=== PATIENT | female | born 1940 | race African-American/Black ===

== ENCOUNTER 2018-05-24 05:18 | Inpatient (IN) | payer BC, MEDICARE ==
[2018-05-24] VITALS (12 sets, daily range): BP systolic 103–151; BP diastolic 64–92
[~2018-05-24] VITALS: Ht 171.4 cm; Wt 68.5 kg
[~2018-05-24 05:18] MED LIST: AMITRIPTYLINE100 MG ORAL; ATORVASTATIN CA20 MG ORAL
[2018-05-24] MEDS ORDERED: celeBREX 200mg Cap **SURGERY PATIENTS ONLY ORAL ONE (06:00)
[2018-05-24] MEDS ORDERED: ceFAZolin 1gm in D5W 55ml IVP ONE (06:00)
[2018-05-24] MEDS ORDERED: oxyCONTIN 20mg tab ORAL ONE (06:00)
--- NOTE | 2018-05-24 06:54 | Pre-Procedure Note/Attestation ---
Pre-Procedure Note/Attestation Complete Prior to Procedure Planned Procedure: left Procedure Narrative: left tka Indications for Procedure Pre-Operative Diagnosis: left knee arthritis Attestation I attest that I discussed the nature of the procedure; its benefits; risks and complications; and alternatives (and the risks and benefits of such alternatives ), prior to the procedure, with the patient (or the patient's legal customer service representative teller). I attest that, if there was a reasonable possibility of needing a blood transfusion, the patient (or the patient's legal customer service representative teller) was given the [facility] standardized written summary, pursuant to the Jim Leena Blood Safety Act ([place] Health and Safety Code # 1645, as amended). I attest that I re-evaluated the patient just prior to the surgery and that there has been no change in the patient's H&P, except as documented below: none Bruno Richardson MD May 24, 2018 06:54
[2018-05-24] MEDS ORDERED: LR 1000ml ONE (07:00)
[2018-05-24] MEDS ORDERED: Propofol 200mg/20ml IV ONE (07:00)
[2018-05-24] MEDS ORDERED: NS Irrig 1000ml ONE (07:00)
[2018-05-24] MEDS ORDERED: Sterile Water Irrig 1000ml IRRIG ONE (07:00)
[2018-05-24] MEDS ORDERED: cloNIDine 1000mcg/10ml inj ONE (07:04)
[2018-05-24] MEDS ORDERED: Bupivacaine 0.5% Inj 30 ml vial INJ ONE (07:04)
[2018-05-24] MEDS ORDERED: Bacitracin 50000 Units Vial ONE ×2 (07:05→09:44)
[2018-05-24] MEDS ORDERED: NeoSporin Gu Irrig 1ml Amp IRRIG ONE ×2 (07:05→09:44)
[2018-05-24] MEDS ORDERED: Ropivacaine 5mg/ml Vial 30ml INJ ONE (07:08)
[2018-05-24] MEDS ORDERED: Dexamethasone 4mg/ml vial ONE (07:08)
[2018-05-24] MEDS ORDERED: Lidocaine 1% MPF 10mg/ml 5ml ONE (07:08)
[2018-05-24] MEDS ORDERED: Sodium Chloride 10ml vial INJ ONE (07:08)
[2018-05-24] MEDS ORDERED: EPINEPHrine 1mg/1ml Amp ONE (07:09)
[2018-05-24] MEDS ORDERED: D5 1/2NS w/KCl 20mEq 1,000 ML IV SCH (07:13)
[2018-05-24] MEDS ORDERED: HYDROcodone/Acetamin 7.5/325 tab ORAL PRN ×2 (07:15→07:45)
[2018-05-24] MEDS ORDERED: Milk of Magnesia 30ml Ud ORAL PRN (07:15)
[2018-05-24] MEDS ORDERED: Morphine Sulfate 2mg/ml Inj IVP PRN (07:30)
[2018-05-24] MEDS ORDERED: LR 1000ml 1,000 ML IVLG SCH (07:35)
--- NOTE | 2018-05-24 07:35 | Anethesia Preoperative Eval ---
Anesthesia Pre-op PMH/ROS General Date of Evaluation: May 24, 2018 Time of Evaluation: 07:01 Anesthesiologist: Car ASA Score: ASA 3 Mallampati Score Class I : Soft palate, uvula, fauces, pillars visible Class II: Soft palate, uvula, fauces visible Class III: Soft palate, base of uvula visible Class IV: Only hard plate visible Mallampati Classification: Class II Surgeon: Debra Diagnosis: L Knee Pain Surgical Procedure: L TKR Anesthesia History: none Family History: no anesthesia problems Allergies: Coded Allergies: No Known Allergies (Unverified , 05/20/18) Medications: see eMAR Past Medical History Cardiovascular: Reports: HTN, other - HL Gastrointestinal/Genitourinary: Reports: GERD, other - Hep C Anesthesia Pre-op Phys. Exam Physician Exam Last Vital Signs Date Time Temp Pulse Resp B/P (MAP) Pulse Ox O2 Delivery O2 Flow Rate FiO2 05/24/18 06:08 97.6 87 20 151/92 (111) 97 97.6 05/24/18 05:51 Room Air Constitutional: NAD Neurologic: CN 2-12 intact Cardiovascular: RRR Respiratory: CTA Gastrointestinal: S/NT/ND Airway Exam Mallampati Score: Class II MO: full ROM: full Teeth: missing, intact Anesthesia Pre-op A/P Risk Assessment & Plan Assessment: ASA 3 Plan: GA, BIS, Spinal, L Adductor Block Status Change Before Surgery: No Pre-Antibiotics Dru Grams Ancef IV Given Within 1 Hr of Incision: Yes Time Given: 07:33 Ruddy Yoon MD May 24, 2018 07:35
[2018-05-24] MEDS ORDERED: DiphenhydrAMINE 50mg/ml Inj IVP PRN (07:45)
[2018-05-24] MEDS ORDERED: Labetalol 5mg/ml 20ml vial IV PRN (07:45)
[2018-05-24] MEDS ORDERED: LORazepam Inj 2mg/ml 1ml IV PRN (07:45)
[2018-05-24] MEDS ORDERED: Midazolam 2mg/2ml Inj IVP PRN (07:45)
[2018-05-24] MEDS ORDERED: oxyCODONE HCL/Acetaminophen 5/325mg ORAL PRN (07:45)
[2018-05-24] MEDS ORDERED: Atropine Inj 1mg/10ml Syr IV PRN (07:45)
[2018-05-24] MEDS ORDERED: Norco 5mg/325mg tab ORAL PRN (07:45)
[2018-05-24] MEDS ORDERED: Metoclopramide 10mg/2ml Inj IVP PRN (07:45)
[2018-05-24] MEDS ORDERED: fentaNYL 100 mcg/2 mL IV PRN (07:45)
[2018-05-24] MEDS ORDERED: Hydromorphone 0.5mg/0.5ml inj IVP PRN (07:45)
[2018-05-24] MEDS ORDERED: Tranexamic Acid 1,000 MG in NS 65 ML IVPB ONE (08:00)
--- NOTE | 2018-05-24 08:29 | Immediate Post-Op Evaluation ---
Immediate Post-Op Evalulation Immediate Post-Op Evalulation Procedure: L TKR Date of Evaluation: May 24, 2018 Time of Evaluation: 10:40 IV Fluids: 1200 LR Blood Products: 0 Estimated Blood Loss: 25 Urinary Output: 0 Blood Pressure Systolic: 115 Blood Pressure Diastolic: 66 Pulse Rate: 99 Respiratory Rate: 16 O2 Sat by Pulse Oximetry: 99 Temperature (Fahrenheit): 97.6 Pain Score (1-10): 0 Nausea: No Vomiting: No Complications 0 Patient Status: awake, reacts, patent, none Hydration Status: adequate Dru Grams Ancef IV Given Within 1 Hr of Incision: Yes Time Given: 08:33 Ruddy Yoon MD May 24, 2018 08:29
[2018-05-24] MEDS ORDERED: ePHEDrine 50mg/ml Inj ONE (08:56)
[2018-05-24] MEDS ORDERED: Docusate 100mg cap ORAL SCH (09:00)
[2018-05-24] MEDS ORDERED: Acetaminophen 500mg (ES) tab ORAL SCH (09:00)
[2018-05-24] MEDS ORDERED: Enoxaparin 30mg Inj SUBQ SCH (09:00)
[2018-05-24] MEDS ORDERED: celeBREX 200mg Cap **SURGERY PATIENTS ONLY ORAL SCH (09:00)
--- NOTE | 2018-05-24 11:24 | Diagnostic Imaging Report ---
Indication: Knee pain status post total knee replacement Technique: XRAY Knee 1-2v L Comparison: None Findings: Expected appearance status post recent total knee arthroplasty with patellar resurfacing. Anatomic alignment within normal limits. No hardware-related complication. No evidence of acute fracture. Expected gas in the joint and subcutaneous tissues. No radiopaque foreign body identified. Impression: Expected appearance status post recent total knee replacement. No evidence of acute fracture or definite hardware-related complication.
--- NOTE | 2018-05-24 11:44 | Brief Operative Note ---
Immediate Post Operative Note Operative Note Chief Complaint: left knee pain Pre-op Diagnosis: left knee arthritis Procedure: left tka Post-op Diagnosis: same as pre-op Findings: consistent w/pre-op dx studies Surgeon: md dewey Sample Room Supervisor: marciano gordon Anesthesiologist: md ruthie Anesthesia: general, regional Specimen: yes Complications: none Condition: stable Fluids: ns Estimated Blood Loss: minimal Drains: none Implant(s) used?: Yes - wright and nephew Crissy Gordon May 24, 2018 11:44
[2018-05-24] MEDS: D5 1/2NS w/KCl 20mEq 1,000 ML IV SCH (14:43)
[2018-05-24] MEDS ORDERED: oxyCONTIN 20mg tab ORAL SCH (15:00)
[2018-05-24] MEDS: ceFAZolin sod 1 GM in D5W 55 ML IV SCH (17:39)
[2018-05-24] MEDS: Docusate 100mg cap ORAL SCH (17:45)
[2018-05-24] MEDS: Acetaminophen 500mg (ES) tab ORAL SCH (17:46)
[2018-05-24] MEDS: oxyCONTIN 20mg tab ORAL SCH (20:50)
[2018-05-24] MEDS: Enoxaparin 30mg Inj SUBQ SCH (20:55)
[2018-05-24] MEDS: Norco 5mg/325mg tab ORAL PRN (22:57)
[2018-05-25] MEDS: ceFAZolin sod 1 GM in D5W 55 ML IV SCH (00:12)
[2018-05-25 00:50] VITALS: BP_SYST 131; BP_DIAS 18; BP_DIAS 78
[2018-05-25] MEDS: D5 1/2NS w/KCl 20mEq 1,000 ML IV SCH ×2 (03:40→17:33)
[2018-05-25 04:00] VITALS: BP 124/57
[2018-05-25] MEDS: Norco 5mg/325mg tab ORAL PRN (05:37)
[2018-05-25 06:45] LABS: BASOPHILS % (AUTO) 0.2 % (0.0-2.0); HEMATOCRIT 34.1 % (37.0-47.0); HEMOGLOBIN 11.4 G/DL (12.0-16.0); LYMPHOCYTES % (AUTO) 12.6 % (20.0-45.0); MEAN CORPUSCULAR VOLUME 88 FL (80-99); MONOCYTES % (AUTO) 7.3 % (1.0-10.0); NEUTROPHILS % (AUTO) 79.9 % (45.0-75.0); PLATELET COUNT 164 K/UL (150-450); RED BLOOD COUNT 3.87 M/UL (4.20-5.40); RED CELL DISTRIBUTION WIDTH 11.7 % (11.6-14.8); WHITE BLOOD COUNT 13.3 K/UL (4.8-10.8)
[2018-05-25] MEDS ORDERED: Alfentanil 2ml Inj ONE (07:00)
[2018-05-25] MEDS: Morphine Sulfate 2mg/ml Inj IVP PRN ×2 (07:17→22:53)
--- NOTE | 2018-05-25 07:32 | 48 Hour Post Anesthesia Eval ---
Post Anesthesia Evaluation Procedure: L TKR Date of Evaluation: May 25, 2018 Time of Evaluation: 07:00 Blood Pressure Systolic: 124 0: 57 Pulse Rate: 81 Respiratory Rate: 17 Temperature (Fahrenheit): 98.2 O2 Sat by Pulse Oximetry: 100 Airway: patent Nausea: No Vomiting: No Pain Intensity: 0 Hydration Status: adequate Cardiopulmonary Status: at baseline Mental Status/LOC: patient returned to baseline Post-Anesthesia Complications: 0 Follow-up care needed: N/A - further care aas per primary team VIDYA JOE M.D. May 25, 2018 07:32
[2018-05-25 08:00] VITALS: BP 109/74
--- NOTE | 2018-05-25 08:26 | Orthopedic Progress Note ---
Orthopedic - Progress Note Subjective Symptoms: c/o post-op knee pain Objective Vital Signs Laboratory Tests Test 05/25/18 05:20 White Blood Count 13.3 K/UL (4.8-10.8) H Red Blood Count 3.87 M/UL (4.20-5.40) L Hemoglobin 11.4 G/DL (12.0-16.0) L Hematocrit 34.1 % (37.0-47.0) L Mean Corpuscular Volume 88 FL (80-99) Mean Corpuscular Hemoglobin 29.3 PG (27.0-31.0) Mean Corpuscular Hemoglobin Concent 33.3 G/DL (32.0-36.0) Red Cell Distribution Width 11.7 % (11.6-14.8) Platelet Count 164 K/UL (150-450) Mean Platelet Volume 6.7 FL (6.5-10.1) Neutrophils (%) (Auto) 79.9 % (45.0-75.0) H Lymphocytes (%) (Auto) 12.6 % (20.0-45.0) L Monocytes (%) (Auto) 7.3 % (1.0-10.0) Eosinophils (%) (Auto) 0.0 % (0.0-3.0) Basophils (%) (Auto) 0.2 % (0.0-2.0) Last 24 Hour Vital Signs Date Time Temp Pulse Resp B/P (MAP) Pulse Ox O2 Delivery O2 Flow Rate FiO2 05/25/18 07:47 98.2 05/25/18 07:32 208.8 81 17 100 05/25/18 07:17 98.2 05/25/18 06:36 98.2 05/25/18 05:37 98.2 05/25/18 04:00 98.2 81 17 124/57 (79) 100 98.2 05/25/18 00:50 97.8 98 18 131/18 (55) 99 97.8 05/25/18 00:50 97.8 98 18 131/78 (95) 99 97.8 05/24/18 22:57 97.6 05/24/18 21:00 Room Air 2.0 05/24/18 20:50 97.6 05/24/18 20:34 97.6 100 16 127/85 (99) 99 97.6 05/24/18 17:46 97.7 05/24/18 16:00 97.7 99 20 110/76 (87) 94 97.7 05/24/18 12:50 97.6 100 21 110/75 (87) 97 97.6 05/24/18 12:00 Nasal Cannula 2.0 05/24/18 11:40 98.6 93 14 106/68 98 Nasal Cannula 3 98.6 05/24/18 11:25 94 19 106/64 98 Nasal Cannula 3 05/24/18 11:05 98 19 105/71 96 Nasal Cannula 3 05/24/18 10:55 99 17 103/67 96 Nasal Cannula 3 05/24/18 10:45 100 14 107/65 99 Nasal Cannula 3 05/24/18 10:39 98 18 110/65 99 Simple Mask 6 05/24/18 10:34 97 15 112/70 99 Simple Mask 6 05/24/18 10:30 207.7 99 16 99 05/24/18 10:29 97.6 99 16 115/66 99 Simple Mask 6 97.6 I&O Intake and Output 05/24/18 05/25/18 19:00 07:00 Intake Total 2220 ml 1765 ml Output Total 725 ml 650 ml Balance 1495 ml 1115 ml Intake Oral 590 ml 980 ml IV Total 1630 ml 785 ml Output Urine Total 700 ml 650 ml Estimated Blood Loss 25 ml # Voids 2 Wound: clean, dry, intact Drains: none Neuro Status: normal Vascular Status: normal Additional Comments XRAY REVIEWED Assessment Post-op Diagnosis POD 1 Procedure Performed left tka Plan Plan: PT, pain management, discharge plan - home with services vs snf Crissy Ureña May 25, 2018 08:26
[2018-05-25] MEDS: oxyCONTIN 20mg tab ORAL SCH ×2 (09:00→20:57)
[2018-05-25] MEDS: Docusate 100mg cap ORAL SCH ×3 (10:09→17:33)
[2018-05-25] MEDS: Acetaminophen 500mg (ES) tab ORAL SCH ×3 (10:09→18:00)
[2018-05-25] MEDS: celeBREX 200mg Cap **SURGERY PATIENTS ONLY ORAL SCH (10:09)
[2018-05-25] MEDS: Enoxaparin 30mg Inj SUBQ SCH ×2 (10:14→20:58)
[2018-05-25 11:47] VITALS: BP 115/76
[2018-05-25 16:00] VITALS: BP 104/72
[2018-05-25 20:00] VITALS: BP 120/80
--- NOTE | 2018-05-25 20:11 | General Progress Note ---
Assessment/Plan Status Narrative s/p TOTAL KNEE REPLACEMENT perioperative antibitoi cprphyalxios post op dvt prophyalxis follwo cbc PT OT DVT prophylaxis ? [facility]. Subjective Date patient seen: May 25, 2018 Time patient seen: 20:08 Constitutional: Reports: no symptoms HEENT: Reports: no symptoms Cardiovascular: Reports: no symptoms Gastrointestinal/Abdominal: Reports: no symptoms Allergies: Coded Allergies: No Known Allergies (Unverified , 05/20/18) Subjective has knee pain PMH: hyperlipid allergy NKDA medicaiotn on statin at home ROS had knee pain prior to admit no feverno chills no ches tpain nio diplopia Objective Last 24 Hour Vital Signs Date Time Temp Pulse Resp B/P (MAP) Pulse Ox O2 Delivery O2 Flow Rate FiO2 05/25/18 16:00 97.6 74 20 104/72 (83) 95 97.6 05/25/18 15:08 97.8 05/25/18 14:09 97.8 05/25/18 11:47 97.8 97 20 115/76 (89) 94 97.8 05/25/18 10:09 97.8 05/25/18 09:00 97.8 05/25/18 08:39 Room Air 05/25/18 08:00 97.8 95 20 109/74 (86) 94 97.8 05/25/18 07:47 98.2 05/25/18 07:32 208.8 81 17 100 05/25/18 07:17 98.2 05/25/18 06:36 98.2 05/25/18 05:37 98.2 05/25/18 04:00 98.2 81 17 124/57 (79) 100 98.2 05/25/18 00:50 97.8 98 18 131/18 (55) 99 97.8 05/25/18 00:50 97.8 98 18 131/78 (95) 99 97.8 05/24/18 22:57 97.6 05/24/18 21:00 Room Air 2.0 05/24/18 20:50 97.6 05/24/18 20:34 97.6 100 16 127/85 (99) 99 97.6 Intake and Output 05/24/18 05/25/18 19:00 07:00 Intake Total 2220 ml 1765 ml Output Total 725 ml 650 ml Balance 1495 ml 1115 ml Intake Oral 590 ml 980 ml IV Total 1630 ml 785 ml Output Urine Total 700 ml 650 ml Estimated Blood Loss 25 ml # Voids 2 Laboratory Tests 05/25/18 05:20: White Blood Count 13.3H, Red Blood Count 3.87L, Hemoglobin 11.4L, Hematocrit 34.1L, Mean Corpuscular Volume 88, Mean Corpuscular Hemoglobin 29.3, Mean Corpuscular Hemoglobin Concent 33.3, Red Cell Distribution Width 11.7, Platelet Count 164, Mean Platelet Volume 6.7, Neutrophils (%) (Auto) 79.9H, Lymphocytes ( %) (Auto) 12.6L, Monocytes (%) (Auto) 7.3, Eosinophils (%) (Auto) 0.0, Basophils (%) (Auto) 0.2 Height (Feet): 5 Height (Inches): 7.50 Weight (Pounds): 151 General Appearance: WD/WN Neck: normal alignment Cardiovascular: normal rate, regular rhythm, no JVD Respiratory/Chest: lungs clear Abdomen: soft Extremities: other - no clubbing cyanosis and or edema Brody Ellis MD May 25, 2018 20:11
[2018-05-25] MEDS: Atorvastatin 20mg tab ORAL SCH (20:57)
[2018-05-26] VITALS: BP 124/78
[2018-05-26 04:00] VITALS: BP 119/77
[2018-05-26] MEDS: D5 1/2NS w/KCl 20mEq 1,000 ML IV SCH ×2 (05:57→20:23)
[2018-05-26 07:26] LABS: BASOPHILS % (AUTO) 0.8 % (0.0-2.0); EOSINOPHILS % (AUTO) 0.1 % (0.0-3.0); HEMOGLOBIN 10.8 G/DL (12.0-16.0); LYMPHOCYTES % (AUTO) 27.2 % (20.0-45.0); MEAN CORPUSCULAR VOLUME 89 FL (80-99); MONOCYTES % (AUTO) 7.5 % (1.0-10.0); NEUTROPHILS % (AUTO) 64.4 % (45.0-75.0); PLATELET COUNT 141 K/UL (150-450); RED BLOOD COUNT 3.57 M/UL (4.20-5.40); RED CELL DISTRIBUTION WIDTH 11.6 % (11.6-14.8)
--- NOTE | 2018-05-26 07:39 | Orthopedic Progress Note ---
Orthopedic - Progress Note Subjective Symptoms: c/o post-op knee pain Objective Vital Signs Last 24 Hour Vital Signs Date Time Temp Pulse Resp B/P (MAP) Pulse Ox O2 Delivery O2 Flow Rate FiO2 05/26/18 04:00 98.6 97 18 119/77 (91) 97 98.6 05/26/18 00:00 98.2 99 17 124/78 (93) 91 98.2 05/25/18 21:00 Room Air 05/25/18 20:00 97.3 82 18 120/80 (93) 92 97.3 05/25/18 16:00 97.6 74 20 104/72 (83) 95 97.6 05/25/18 15:08 97.8 05/25/18 14:09 97.8 05/25/18 11:47 97.8 97 20 115/76 (89) 94 97.8 05/25/18 10:09 97.8 05/25/18 09:00 97.8 05/25/18 08:39 Room Air 05/25/18 08:00 97.8 95 20 109/74 (86) 94 97.8 05/25/18 07:47 98.2 I&O Intake and Output 05/25/18 05/26/18 19:00 07:00 Intake Total 1102.5 ml 1625 ml Output Total 1800 ml 1525 ml Balance -697.5 ml 100 ml Intake Oral 540 ml 800 ml IV Total 562.5 ml 825 ml Output Urine Total 1800 ml 1525 ml Wound: clean, dry, intact Drains: none Neuro Status: normal Assessment Post-op Diagnosis POD #2 s/p Left TKA Doing Great Plan Plan: PT, pain management, discharge plan Additional Comments Dressing Change Arrange for Rehab placement tomorrow. Continue ambulation and DVT prophylaxis Bruno Richardson MD May 26, 2018 07:39
[2018-05-26 08:00] VITALS: BP 120/77
[2018-05-26] MEDS: Acetaminophen 500mg (ES) tab ORAL SCH ×3 (08:42→17:28)
[2018-05-26] MEDS: celeBREX 200mg Cap **SURGERY PATIENTS ONLY ORAL SCH (08:42)
[2018-05-26] MEDS: Docusate 100mg cap ORAL SCH ×3 (08:42→17:28)
[2018-05-26] MEDS: Enoxaparin 30mg Inj SUBQ SCH ×2 (09:00→20:24)
[2018-05-26] MEDS: oxyCONTIN 20mg tab ORAL SCH ×2 (09:00→20:24)
[2018-05-26 12:00] VITALS: BP 134/79
--- NOTE | 2018-05-26 13:52 | General Progress Note ---
Assessment/Plan Status Narrative s/p total knee arthroplasty pereioperative bloodloss Assessment/Plan pt ot dvt prophyalxis pain contorl needs to go to rehab [facility] and or other. Subjective Date patient seen: May 26, 2018 Time patient seen: 13:51 Constitutional: Reports: no symptoms HEENT: Reports: no symptoms Cardiovascular: Reports: no symptoms Respiratory: Reports: no symptoms Allergies: Coded Allergies: No Known Allergies (Unverified , 05/20/18) Subjective has knee pain PMH: hyperlipid allergy NKDA medicaiotn on statin at home ROS had knee pain prior to admit no feverno chills no ches tpain nio diplopia Objective Last 24 Hour Vital Signs Date Time Temp Pulse Resp B/P (MAP) Pulse Ox O2 Delivery O2 Flow Rate FiO2 05/26/18 13:18 98.6 05/26/18 12:00 98.4 101 18 134/79 (97) 95 98.4 05/26/18 09:41 98.6 05/26/18 09:00 Room Air 05/26/18 09:00 98.6 05/26/18 08:42 98.6 05/26/18 08:00 98.5 95 18 120/77 (91) 95 98.5 05/26/18 04:00 98.6 97 18 119/77 (91) 97 98.6 05/26/18 00:00 98.2 99 17 124/78 (93) 91 98.2 05/25/18 21:00 Room Air 05/25/18 20:00 97.3 82 18 120/80 (93) 92 97.3 05/25/18 16:00 97.6 74 20 104/72 (83) 95 97.6 05/25/18 14:09 97.8 Intake and Output 05/25/18 05/26/18 19:00 07:00 Intake Total 1102.5 ml 1625 ml Output Total 1800 ml 1525 ml Balance -697.5 ml 100 ml Intake Oral 540 ml 800 ml IV Total 562.5 ml 825 ml Output Urine Total 1800 ml 1525 ml Laboratory Tests 05/26/18 05:00: White Blood Count 10.0, Red Blood Count 3.57L, Hemoglobin 10.8L, Hematocrit 32.0L, Mean Corpuscular Volume 89, Mean Corpuscular Hemoglobin 30.2, Mean Corpuscular Hemoglobin Concent 33.8, Red Cell Distribution Width 11.6, Platelet Count 141L, Mean Platelet Volume 6.3L, Neutrophils (%) (Auto) 64.4, Lymphocytes (%) (Auto) 27.2, Monocytes (%) (Auto) 7.5, Eosinophils (%) (Auto) 0.1, Basophils (%) (Auto) 0.8 Height (Feet): 5 Height (Inches): 7.50 Weight (Pounds): 151 General Appearance: WD/WN Neck: normal alignment Cardiovascular: normal rate, regular rhythm, no JVD Respiratory/Chest: lungs clear Abdomen: soft Brody Ellis MD May 26, 2018 13:52
[2018-05-26 16:00] VITALS: BP 145/77
[2018-05-26 20:00] VITALS: BP 129/79
[2018-05-26] MEDS: Atorvastatin 20mg tab ORAL SCH (20:24)
[2018-05-27] VITALS: BP 107/72
[2018-05-27 04:00] VITALS: BP 117/76
[2018-05-27 07:04] LABS: BASOPHILS % (AUTO) 1.1 % (0.0-2.0); EOSINOPHILS % (AUTO) 1.7 % (0.0-3.0); HEMATOCRIT 31.1 % (37.0-47.0); HEMOGLOBIN 10.4 G/DL (12.0-16.0); LYMPHOCYTES % (AUTO) 33.4 % (20.0-45.0); MEAN CORPUSCULAR VOLUME 89 FL (80-99); MONOCYTES % (AUTO) 8.3 % (1.0-10.0); NEUTROPHILS % (AUTO) 55.5 % (45.0-75.0); PLATELET COUNT 155 K/UL (150-450); RED BLOOD COUNT 3.48 M/UL (4.20-5.40); RED CELL DISTRIBUTION WIDTH 11.6 % (11.6-14.8); WHITE BLOOD COUNT 9.8 K/UL (4.8-10.8)
[2018-05-27 08:00] VITALS: BP 125/78
[2018-05-27] MEDS: Docusate 100mg cap ORAL SCH ×2 (08:33→14:07)
[2018-05-27] MEDS: celeBREX 200mg Cap **SURGERY PATIENTS ONLY ORAL SCH (08:33)
[2018-05-27] MEDS: Acetaminophen 500mg (ES) tab ORAL SCH ×2 (08:34→14:08)
[2018-05-27] MEDS: Enoxaparin 30mg Inj SUBQ SCH (08:36)
[2018-05-27] MEDS: oxyCONTIN 20mg tab ORAL SCH (08:38)
[2018-05-27] MEDS: D5 1/2NS w/KCl 20mEq 1,000 ML IV SCH (08:40)
--- NOTE | 2018-05-27 09:19 | Orthopedic Progress Note ---
Orthopedic - Progress Note Subjective Symptoms: improved Objective Vital Signs Laboratory Tests Test 05/27/18 04:50 White Blood Count 9.8 K/UL (4.8-10.8) Red Blood Count 3.48 M/UL (4.20-5.40) L Hemoglobin 10.4 G/DL (12.0-16.0) L Hematocrit 31.1 % (37.0-47.0) L Mean Corpuscular Volume 89 FL (80-99) Mean Corpuscular Hemoglobin 30.0 PG (27.0-31.0) Mean Corpuscular Hemoglobin Concent 33.6 G/DL (32.0-36.0) Red Cell Distribution Width 11.6 % (11.6-14.8) Platelet Count 155 K/UL (150-450) Mean Platelet Volume 6.7 FL (6.5-10.1) Neutrophils (%) (Auto) 55.5 % (45.0-75.0) Lymphocytes (%) (Auto) 33.4 % (20.0-45.0) Monocytes (%) (Auto) 8.3 % (1.0-10.0) Eosinophils (%) (Auto) 1.7 % (0.0-3.0) Basophils (%) (Auto) 1.1 % (0.0-2.0) Last 24 Hour Vital Signs Date Time Temp Pulse Resp B/P (MAP) Pulse Ox O2 Delivery O2 Flow Rate FiO2 05/27/18 04:00 98.3 86 17 117/76 (90) 95 98.3 05/27/18 00:00 98.5 87 17 107/72 (84) 95 98.5 05/26/18 21:44 Room Air 05/26/18 20:24 98.6 05/26/18 20:00 98.2 103 18 129/79 (96) 95 98.2 05/26/18 18:27 98.6 05/26/18 17:28 98.6 05/26/18 16:00 98.3 103 18 145/77 (99) 97 98.3 05/26/18 13:18 98.6 05/26/18 12:00 98.4 101 18 134/79 (97) 95 98.4 I&O Intake and Output 05/26/18 05/27/18 19:00 07:00 Intake Total 1725 ml 1785 ml Output Total 500 ml Balance 1725 ml 1285 ml Intake Oral 1050 ml 960 ml IV Total 675 ml 825 ml Output Urine Total 500 ml # Voids 5 3 Wound: clean, dry, intact Drains: none Neuro Status: normal Vascular Status: normal Assessment Post-op Diagnosis POD 3 Procedure Performed left tka Plan Plan: discharge plan - to SNF today. dressing change prior to d/c. fu in office in 1 week Crissy Ureña May 27, 2018 09:19
--- NOTE | 2018-05-27 09:21 | Discharge Summary ---
Discharge Summary Hospital Course Date of Admission May 24, 2018 at 05:18 Date of Discharge 05/27/18 Admitting Diagnosis left knee arthritis Reason for Hospitalization: s/p left tka 05/24/18 HPI Danika Martinez is a 77 year old female who was admitted on May 24, 2018 at 05: 18 for Primary Osteoarthritis Of Left Knee Consultations MD Caleb Procedures left tka Hospital Course benign. tolerating PO, ambulating, pain well controlled. Discharge Condition Upon Discharge: improving, stable Discharge Disposition Patient was discharged to SNF. WBAT. CPM. lovenox full 14 days post op. f/u dr palomo 1 week Crissy Ureña May 27, 2018 09:21
[2018-05-27 12:00] VITALS: BP 128/72
[2018-05-27 16:00] VITALS: BP 125/68
--- NOTE | 2018-06-02 12:00 | Operative Note - Dictated ---
DATE OF OPERATION: 05/24/2018 PREOPERATIVE DIAGNOSIS: Left knee end-stage arthritis with varus deformity. POSTOPERATIVE DIAGNOSIS: Left knee end-stage arthritis with varus deformity. PROCEDURE: Left total knee arthroplasty using [employer] Legion system size 6 femur, size 5 Alexa left tibia, size 9 mm Legion [facility] articular insert ultra cross-linked polyethylene, and 35 mm patellar component. SURGEON: Bruno Richardson M.D. BACTERIOLOGIST SOIL: Crissy Ureña PA-C. ANESTHESIOLOGIST: Dr. Yoon. ANESTHESIA: Spinal anesthesia combined with adductor block for postoperative pain management. ESTIMATED BLOOD LOSS: Less than 100 mL TOURNIQUET TIME: 80 minutes. COMPLICATIONS: None. BRIEF HISTORY: The patient is a pleasant 77-year-old female, who has had ongoing left knee arthritis. She failed nonoperative treatment. After full discussion of risks, benefits, and complications associated with it including infection, bleeding, neurovascular complication, possibility of continued pain, possibility of loss of motion, stiffness, infection, DVT, PE, and other complications that may arise, she opted for surgical treatment as described above. OPERATIVE PROCEDURE: The patient was brought to the operating table and was placed supine. All pressure points were well padded. Spinal anesthesia was induced and adductor block was performed. The left knee was prepped and draped in usual sterile fashion. Standard anterior approach to the knee was undertaken. After the knee was exsanguinated, tourniquet was inflated to 275 mmHg. A medial parapatellar arthrotomy was performed and the medial releases of the deep fiber of MCL was performed. The patella was everted. The knee was flexed. The cruciate ligaments were removed. The menisci were removed. Intramedullary access was obtained into the femur. An intramedullary guide was placed and distal femoral cut was placed in 5 degrees of valgus. Subsequently, the distal sizing block was applied and size 6 appeared to be the right size. The cutting block was placed in 3 degrees of external rotation and anterior, posterior, and chamfer cuts were performed using size 6 blocks in 3 degrees of external rotation. This was checked and rechecked, appeared to be in excellent position. At this point, the trial femoral component was applied and appeared to be fitted very well. At this point, care was given to the tibial side. Using appropriate retractors, the posterior, medial, and lateral structures were protected and tibia was retracted anteriorly. The extramedullary guide was applied and recreated near-anatomical alignment and posterior slope, 2 mm was taken off the most involved side which was the medial side. This provided excellent tibial cut with minimal bone resection. Flexion and extension gaps were checked and appeared to be perfect. Once this was completed, a tibial trial was applied and size 5 appeared to be the right size. This was placed in about 3 degrees of external rotation and tibia was punched. Once this was completed, trialing was performed using femoral trial, tibial trial, and a 9 mm poly insert, and this appeared to be perfect and excellent. There was full extension, full flexion, and excellent stability at 0, 30 degrees, 45 degrees, and 90 degrees of flexion. At this point, care was given to the patella. The patella was everted. It measured 25 mm. At this point, a freehand cut of the patella was performed and 13 mm of patella was remaining. At this point, a 35 mm patellar component appeared to be the right size and PEG holes were drilled without any complications. At this point, all wounds were thoroughly irrigated using Simpulse irrigation. The cement was mixed and the tibial component, femoral component, and patellar component were cemented without any complication. All excess cement was removed. Trialing was performed and 9 mm poly insert appeared to be the right size. Therefore, at this point, a 9 mm Deep [facility] poly insert was then placed in and locked in without any complication. Range of motion and stability was checked and appeared to be perfect as described previously. The knee was thoroughly irrigated using copious amount of fluid and all excess cement pieces were removed. The tourniquet was deflated and all bleeders were stopped. The extensor mechanism was closed using #1 Vicryl suture. Subcutaneous tissue was closed using 2-0 Vicryl suture. Skin was closed using 3-0 Monocryl suture. Dermabond was applied and sterile dressing was applied. The patient was taken to recovery room in stable condition. All lap counts and instrument counts were correct. Preop antibiotic was given to the patient prior to this procedure and time-out was performed. Bruno Richardson M.D. DR: Duy JOB#: [id number] CC:
== END 2018-05-27 17:45 | DRG 470 ==
LOC: SDSOVERFLO 05:18 → 3E 11:50
PROC: 0SRD0J9 Replacement of Left Knee Joint with Synthetic Substitute, Cemented, Open Approach (ICD-10-PCS; principal; 2018-05-24 07:30)
DX: M17.12 Unilateral primary osteoarthritis, left knee (principal); E78.5 Hyperlipidemia, unspecified; M21.162 Varus deformity, not elsewhere classified, left knee
CPT/HCPCS: 36415; 85025; 86850; 86900; 86901; 87081; 94003; 94150; J2405; J3490